=== PATIENT | male | born 1955 | race Caucasian/White ===

== ENCOUNTER → 2017-07-20 | Outpatient (REF) ==
[~2017-07-20] MED LIST: /CIPR75TA OR; ASPI325T OR; FLAG500T OR; LIPI10TA OR; LISI10TA4 OR; NIAS500T2 OR; VICO5TAB OR
--- NOTE | 2017-07-21 01:14 | REP ---
Clinical: Left shoulder pain. Technique: AP and axial views of the bilateral clavicles. Findings: The bilateral clavicles are intact and without acute fracture. The acromioclavicular and sternoclavicular joints are symmetric and normal bilaterally. The surrounding soft tissues are unremarkable. Impression: Normal, age-appropriate bilateral clavicle radiographs. Signed by Subhash Abrams MD 07/21/2017 01:06 A
--- NOTE | 2017-07-21 01:27 | REP ---
Clinical: Left shoulder pain . Technique: Internal rotation, external rotation, and Y view shoulder . Findings: No acute fracture or dislocation. The acromioclavicular and glenohumeral joints are intact and appear normal for age. No periarticular calcifications or overt degenerative changes are appreciated. Sub acromial space is normal. Surrounding soft tissues are unremarkable. Impression: Normal age-appropriate left shoulder radiographs. Signed by Subhash Abrams MD 07/21/2017 01:18 A
== END ==
LOC: M RAD 15:15
DX: M25.512 Pain in left shoulder (principal)

== ENCOUNTER → 2020-05-09 | Outpatient (CLI) | payer OTHER ==
--- NOTE | 2020-05-09 16:40 | REP ---
RENAL ULTRASOUND: Real-time sonographic evaluation of kidneys performed. Kidneys are normal in size and echotexture, right kidney measuring 13.4 x 6.3 x 5.6 cm and left kidney 12.0 x 5.7 x 5.6 cm. There is no hydronephrosis bilaterally. With duplex Doppler evaluation, resistive index right kidney 0.69 and left kidney 0.67. Cyst in the mid right kidney measures 3.9 x 5.5 x 4.3 cm. Cyst in the upper pole measures 2.6 x 2.2 x 2.2 cm. Possible calculus in the mid to lower right kidney measures 7 mm in diameter. In the upper pole of the left kidney, there is a bilobed cyst with a thin internal separation measuring 4.0 x 3.7 x 5.3 cm. IMPRESSION: Bilateral renal cysts. Possible calculus mid to lower right renal collecting system 7 mm.
== END ==
LOC: M PLAIMG 12:50
PROVIDERS: ATTEND Physician Assistant Medical
DX: N28.1 Cyst of kidney, acquired (principal)

== ENCOUNTER 2020-11-01 08:58 | Emergency (ER) | payer OTHER ==
[~2020-11-01] VITALS: Ht 177.8 cm; Wt 116.8 kg
[2020-11-01] MEDS ORDERED: CLAR10CA3 PO (09:06)
[2020-11-01] MEDS ORDERED: VITMTA PO (09:06)
[2020-11-01 09:50] LABS: BASO # 0.1 10^3/uL (0.0-0.2); EOS # 0.2 10^3/uL (0.0-0.5); HEMATOCRIT 48.9 % (42.0-52.0); HEMOGLOBIN 15.5 g/dl (13.5-17.5); LYMPH # 1.1 10^3/uL (1.5-5.0); LYMPH % 16.1 % (24.0-44.0); MEAN CORPUSCULAR HEMOGLOBIN 29.2 pg (27.0-33.0); MEAN CORPUSCULAR HGB CONC 31.7 g/dl (32.0-36.5); MEAN CORPUSCULAR VOLUME 92.1 fl (80.0-96.0); MONO # 0.6 10^3/uL (0.0-0.8); NEUTROPHILS # 5.1 10^3/uL (1.5-8.5); NEUTROPHILS % 71.6 % (36.0-66.0); PLATELET COUNT, AUTOMATED 217 10^3/uL (150-450); RED BLOOD COUNT 5.31 10^6/uL (4.30-6.10); WHITE BLOOD COUNT 7.1 10^3/uL (4.0-10.0)
[2020-11-01 09:57] LABS: INR 0.92; PROTHROMBIN TIME 12.5 SECONDS (12.5-14.3)
[2020-11-01 09:58] LABS: PARTIAL THROMBOPLASTIN TIME 25.4 SECONDS (24.2-38.5)
--- NOTE | 2020-11-01 10:08 | REP ---
INDICATION: CHEST PAIN. COMPARISON: Comparison chest x-ray January 09, 2014. TECHNIQUE: Two views.. FINDINGS: The lungs are well inflated and free of infiltrate. The pleural angles are sharp. The heart size is normal. Pulmonary vasculature is not increased. No significant bony abnormality is seen. EKG monitoring electrodes are seen. IMPRESSION: No active disease.. <Electronically signed by Mike Gregorio > 11/01/20 [id number]
[2020-11-01 10:13] LABS: ALBUMIN 4.4 GM/DL (3.2-5.2); ALT/SGPT 103 U/L (12-78); BILIRUBIN,DIRECT 0.1 MG/DL (0.0-0.2); BILIRUBIN,TOTAL 0.8 MG/DL (0.2-1.0); BLOOD UREA NITROGEN 21 MG/DL (7-18); CALCIUM LEVEL 8.9 MG/DL (8.8-10.2); CARBON DIOXIDE LEVEL 29 MEQ/L (21-32); CHLORIDE LEVEL 108 MEQ/L (98-107); CK-MB VALUE MASS 3.1 NG/ML (<3.6); CPK CREATINE PHOSPHOKINASE 173 U/L (39-308); CREATININE FOR GFR 0.99 MG/DL (0.70-1.30); FREE T4 0.96 NG/DL (0.76-1.46); GLOMERULAR FILTRATION RATE > 60.0 (>49); GLUCOSE, FASTING 158 MG/DL (70-100); LIPASE 197 U/L (73-393); MB/CK RELATIVE INDEX 1.79 (< OR =4); POTASSIUM SERUM 4.2 MEQ/L (3.5-5.1); SODIUM LEVEL 141 MEQ/L (136-145); TROPONIN I < 0.02 NG/ML (< 0.10)
[2020-11-01 15:48] LABS: CK-MB VALUE MASS 2.1 NG/ML (<3.6); CPK CREATINE PHOSPHOKINASE 131 U/L (39-308); TROPONIN I < 0.02 NG/ML (< 0.10)
[2020-11-01 16:28] VITALS: BP 128/82
--- NOTE | 2020-11-02 21:23 | ECGEPIP ---
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
--- NOTE | 2020-11-02 21:30 | ECGEPIP ---
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
== END 2020-11-01 16:31 | disposition home or self-care (01) ==
LOC: M ED 08:58
DX: R07.9 Chest pain, unspecified (principal); M25.512 Pain in left shoulder; I10 Essential (primary) hypertension; I25.2 Old myocardial infarction; E78.5 Hyperlipidemia, unspecified; Z95.5 Presence of coronary angioplasty implant and graft; N28.1 Cyst of kidney, acquired; Z82.49 Family history of ischemic heart disease and other diseases of the circulatory system